=== PATIENT | male | born 1940 | race Caucasian/White ===

== ENCOUNTER → 2018-05-10 | Outpatient (CLI) | payer MEDICARE ==
--- NOTE | 2018-05-10 09:48 | RADIOLOGY REPORT (SQ) ---
EXAM DESCRIPTION: U/S ABD AORTIC SCREENING COMPLETED DATE/TIME: 05/10/2018 9:37 am REASON FOR STUDY: SCREENING FOR AAA (Z13.6), TOBACCO USE (Z72.0) Z13.6 ENCOUNTER FOR SCREENING FOR CARDIOVASCULAR DISORDERS Z72.0 TOBACCO USE COMPARISON: CT chest 06/24/2016 TECHNIQUE: Static and dynamic grayscale images acquired of the aorta and stored on PACs. Selected co esau Doppler and spectral images recorded. LIMITATIONS: None. FINDINGS: AORTIC CALIBER MAXIMAL PROXIMAL: 3.0 cm. MID: 2.6 cm. DISTAL: 6.5 cm in diameter. ILIAC DIAMETER RIGHT: 1.4 cm. LEFT: 2.1 cm. OTHER: No other significant finding. IMPRESSION: Unruptured 6.5 cm diameter infrarenal abdominal aortic aneurysm just above the iliac bif urcation. COMMENT: Aorta screening examinations categories: Negative - less than 3 cm. TECHNICAL DOCUMENTATION: JOB ID: [id number] [employer]- All Rights Reserved Reading location - IP/workstation name: [email or web address]
== END ==
LOC: RAD 08:46
PROVIDERS: ATTEND Family Medicine
DX: Z13.6 Encounter for screening for cardiovascular disorders (principal); I71.4 Abdominal aortic aneurysm, without rupture; Z87.891 Personal history of nicotine dependence
CPT/HCPCS: 76706

== ENCOUNTER 2018-10-06 08:02 | Day surgery (SDC) | payer MEDICARE ==
[~2018-10-06 08:02] MED LIST: CHONDR SU A NA/HYALUR INTRAOC KIT (SURGICARE) ONE; EPINEPHRINE INJ/PF 1 MG/1 ML AMPULE ONE; KETOROLAC TROMETHAMINE 0.45% 4 DROP/0.4 ML DROPERETTE OS PRN; LIDOCAINE 1% INJ-PF (10 MG/ML) 30 ML SDV ONE; MIDAZOLAM 2 MG/2 ML INJ ONE
[2018-10-06] MEDS: TROPICAMIDE 1% OPH SOLN 3 ML OS PRN ×3 (08:35→08:55)
[2018-10-06] MEDS: CYCLOPENTOLATE 0.2%/PHENYLEPHRINE 1% OPH SOLN 2 ML OS PRN ×3 (08:35→08:55)
[2018-10-06] MEDS: BESIFLOXACIN HCL 0.6% OPH SUSP 5 ML BOTTLE OS PRN ×5 (08:36→09:35)
[2018-10-06] MEDS: TETRACAINE HCL 0.5% OPH SOLN 4 ML OS PRN ×3 (08:36→09:10)
--- NOTE | 2018-10-06 19:02 | [facility] OPERATIVE REPORT E ---
[facility] Operative Report NAME: PRAMOD DAVALOS AGE: 78Y DATE OF SURGERY: 10/06/2018 ROOM: PREOPERATIVE DIAGNOSIS: CATARACT, LEFT EYE. POSTOPERATIVE DIAGNOSIS: CATARACT, LEFT EYE. OPERATION: Cataract extraction with insertion of an IOL of the left eye. SURGEON: ANTONIO BATEMAN M.D. ANESTHESIA: Topical. PROCEDURE: After obtaining appropriate consent, the patient's left eye was prepped and draped in sterile fashion as well as the surgeon in a sterile manner and cataract surgery was started. First a paracentesis blade was used to make a side-port incision. Viscoelastic was used to inflate the anterior chamber. Next a 2.4 mm incision was made with a 2.4 mm blade, clear corneal temporally. A continuous capsulorrhexis was made using a cystotome and Utrata forceps. Following this hydrodissection was carried out to make the lens fully loose and mobile and it was rotated 90 degrees. Following this, a ihsbva-thb-mdsekzn technique was used to phacoemulsify the lens with a CDE of 7.30. The remaining cortex was removed with irrigation/aspiration. Provisc was instilled into the capsular bag to inflate the bag. A SN60WF, 21.0 diopter lens was placed. The remaining viscoelastic material was removed with irrigation/aspiration. Following this, the incision was found to be watertight. Besivance was instilled into the eye and a protective shield was placed over the eye. The patient returned to the postoperative recovery in stable condition. DICTATING PHYSICIAN: ANTONIO BATEMAN M.D. [id number] PHY#: [id number] ID: [id number] JOB#: [id number] ACCT: [id number] cc:ANTONIO BATEMAN M.D. >
--- NOTE | 2018-10-06 19:03 | [facility] DISCHARGE SUMMARY E ---
[facility] Discharge Summary NAME: PRAMOD DAVALOS AGE: 78Y ADMITTED: 10/06/2018 DISCHARGED: 10/06/2018 HOSPITAL COURSE: This is a 78-year-old male who underwent cataract extraction of the left eye. DIAGNOSIS: CATARACT, LEFT EYE. He underwent surgery because he was having difficulty seeing small print. DISCHARGE INSTRUCTIONS: He should be on a regular diet. No bending at his waist, no heavy lifting. He should use his Vigamox, ketorolac, and Predforte at 3 p.m. and 8 p.m. and sleep with a rigid shield. I will see him for his 1 day postoperative tomorrow. DICTATING PHYSICIAN: ANTONIO BATEMAN M.D. [id number] PHY#: [id number] ID: [id number] JOB#: [id number] ACCT: [id number] cc:ANTONIO BATEMAN M.D. >
== END 2018-10-06 10:18 | disposition home or self-care (01) ==
LOC: SC 08:02
PROVIDERS: ATTEND Internal Medicine
DX: H25.813 Combined forms of age-related cataract, bilateral (principal); H57.03 Miosis; H40.1132 Primary open-angle glaucoma, bilateral, moderate stage; E11.9 Type 2 diabetes mellitus without complications; I10 Essential (primary) hypertension; R01.1 Cardiac murmur, unspecified; E78.00 Pure hypercholesterolemia, unspecified; Z79.899 Other long term (current) drug therapy; Z79.84 Long term (current) use of oral hypoglycemic drugs
CPT/HCPCS: 82962; 66984; V2632; J2250; J3490 ×3; A9270; J0171; 142

== ENCOUNTER 2018-10-24 08:28 | Day surgery (SDC) | payer MEDICARE ==
[~2018-10-24 08:28] MED LIST changes: -CHONDR SU A NA/HYALUR INTRAOC KIT (SURGICARE) ONE; -EPINEPHRINE INJ/PF 1 MG/1 ML AMPULE ONE; +KETOROLAC TROMETHAMINE 0.45% 4 DROP/0.4 ML DROPERETTE OD PRN; -KETOROLAC TROMETHAMINE 0.45% 4 DROP/0.4 ML DROPERETTE OS PRN; -LIDOCAINE 1% INJ-PF (10 MG/ML) 30 ML SDV ONE; -MIDAZOLAM 2 MG/2 ML INJ ONE
[2018-10-24] MEDS ORDERED: LIDOCAINE 1% INJ-PF (10 MG/ML) 30 ML SDV ONE (08:51)
[2018-10-24] MEDS ORDERED: EPINEPHRINE INJ/PF 1 MG/1 ML AMPULE ONE (08:51)
[2018-10-24] MEDS ORDERED: CHONDR SU A NA/HYALUR INTRAOC KIT (SURGICARE) ONE (08:51)
[2018-10-24] MEDS: TROPICAMIDE 1% OPH SOLN 3 ML OD PRN ×3 (09:02→09:26)
[2018-10-24] MEDS: TETRACAINE HCL 0.5% OPH SOLN 4 ML OD PRN ×3 (09:02→09:34)
[2018-10-24] MEDS: CYCLOPENTOLATE 0.2%/PHENYLEPHRINE 1% OPH SOLN 2 ML OD PRN ×3 (09:02→09:25)
[2018-10-24] MEDS: BESIFLOXACIN HCL 0.6% OPH SUSP 5 ML BOTTLE OD PRN ×3 (09:02→09:56)
[2018-10-24] MEDS ORDERED: MIDAZOLAM 2 MG/2 ML INJ ONE (09:20)
[2018-10-24] MEDS ORDERED: FENTANYL CITRATE INJ/PF 100 MCG/2 ML AMPUL ONE (09:20)
--- NOTE | 2018-10-24 14:32 | [facility] DISCHARGE SUMMARY E ---
[facility] Discharge Summary NAME: PRAMOD DAVALOS AGE: 78Y ADMITTED: 10/24/2018 DISCHARGED: 10/24/2018 DIAGNOSIS: CATARACT, RIGHT EYE. SUMMARY: This is a 78-year-old patient who underwent cataract extraction, right eye. They underwent having surgery because they were having trouble seeing road signs at a distance. DISCHARGE INSTRUCTIONS: The patient should be on a regular diet, no bending at the waist, and no heavy lifting. They should use their Besivance, Ilevro, and Durezol at 3 p.m. and 8 p.m. and sleep with a rigid shield. I will see him for his 1-day postoperative tomorrow. DICTATING PHYSICIAN: ANTONIO BATEMAN M.D. [id number] PHY#: [id number] ID: [id number] JOB#: [id number] ACCT: [id number] cc:ANTONIO BATEMAN M.D. >
--- NOTE | 2018-10-24 14:32 | [facility] OPERATIVE REPORT E ---
[facility] Operative Report NAME: PRAMOD DAVALOS AGE: 78Y DATE OF SURGERY: 10/24/2018 ROOM: PREOPERATIVE DIAGNOSIS: CATARACT, RIGHT EYE. POSTOPERATIVE DIAGNOSIS: CATARACT, RIGHT EYE. OPERATION: Cataract extraction with insertion of an IOL of the right eye. SURGEON: ANTONIO BATEMAN M.D. ANESTHESIA: Topical. PROCEDURE: After obtaining appropriate consent, the patient's right eye was prepped and draped in sterile fashion as well as the surgeon in a sterile manner and cataract surgery was started. First a paracentesis blade was used to make a side-port incision. Viscoelastic was used to inflate the anterior chamber. Next a 2.4 mm incision was made with a 2.4 mm blade, clear corneal temporally. A continuous capsulorrhexis was made using a cystotome and Utrata forceps. Following this hydrodissection was carried out to make the lens fully loose and mobile and it was rotated 90 degrees. Following this, a ijjwdp-qmd-deaotqf technique was used to phacoemulsify the lens with a CDE of 9.5. The remaining cortex was removed with irrigation/aspiration. Provisc was instilled into the capsular bag to inflate the bag. A SN60WF, 21.0 diopter lens was placed. The remaining viscoelastic material was removed with irrigation/aspiration. Following this, the incision was found to be watertight. Besivance was instilled into the eye and a protective shield was placed over the eye. The patient returned to the postoperative recovery in stable condition. DICTATING PHYSICIAN: ANTONIO BATEMAN M.D. [id number] PHY#: [id number] ID: [id number] JOB#: [id number] ACCT: [id number] cc:ANTONIO BATEMAN M.D. >
== END 2018-10-24 11:31 | disposition home or self-care (01) ==
LOC: SC 08:28
PROVIDERS: ATTEND Internal Medicine
DX: H25.811 Combined forms of age-related cataract, right eye (principal)
CPT/HCPCS: 82962; 66984; V2632; J2250; J3490 ×3; A9270; J0171; J3010; 142

== ENCOUNTER 2019-08-28 08:16 | Day surgery (SDC) | payer MEDICARE, MEDICAID ==
[~2019-08-28 08:16] MED LIST changes: -KETOROLAC TROMETHAMINE 0.45% 4 DROP/0.4 ML DROPERETTE OD PRN; +PROPOFOL INJ 200 MG/20 ML VIAL IV ONE
[2019-08-28 10:07] VITALS: BP 155/84
--- NOTE | 2019-08-28 13:37 | Operative Report ---
Operative Report DATE OF SURGERY: 08/28/19 Operative Report: The risks, benefits and alternatives of the procedure including the risk of bleeding, perforation requiring surgery have been explained to the patient in detail and informed consent has been obtained. The patient is placed in a left, lateral decubital position. Timeout was called. Propofol medication is administered. Rectal examination is done which did not reveal any masses, tears or fissures. An Olympus videoscope was introduced into the patient's rectum. Scope was then carefully advanced all the way to the cecum. Cecum was identified by the usual anatomical landmarks of the ileocecal valve as well as the appendiceal office. Photodocumentation is obtained. Scope was then sequentially pulled back via the various segments of the colon including the ascending colon, hepatic flexure, transverse colon, splenic flexure, descending colon finding to the rectosigmoid portions of the colon. Retroflexion maneuvers performed. PREOPERATIVE DIAGNOSIS: Personal history of polyp POSTOPERATIVE DIAGNOSIS: Small sessile descending colon polyp that was removed via snare polypectomy and retrieved. Large hepatic flexure polyp that had to be removed piecemeal but all segments retrieved. Transverse colon polyp that was removed via snare polypectomy and retrieved. Internal hemorrhoids OPERATION: Colonoscopy with snare polypectomy SURGEON: RADHA SHIN ANESTHESIA: LMAC TISSUE REMOVED OR ALTERED: As noted above. COMPLICATIONS: None. ESTIMATED BLOOD LOSS: None. INTRAOPERATIVE FINDINGS: As noted above. PROCEDURE: Patient tolerated the procedure well. No immediate postprocedure complications are noted. Patient is discharged in good condition. Discharge date 08/28/2019. Discharge diet: Regular. Discharge activity: Regular. 2 to 3-week follow-up to discuss findings. Patient is instructed to call the office or proceed to the emergency room should there be any further problems or questions. Wait on the pathology. 3-year surveillance colonoscopy.
== END 2019-08-28 10:20 | disposition home or self-care (01) ==
LOC: END 08:16
PROVIDERS: ATTEND Internal Medicine Gastroenterology
DX: Z12.11 Encounter for screening for malignant neoplasm of colon (principal); D12.2 Benign neoplasm of ascending colon; D12.3 Benign neoplasm of transverse colon; Z86.010 Personal history of colon polyps; I10 Essential (primary) hypertension; E11.9 Type 2 diabetes mellitus without complications; E78.5 Hyperlipidemia, unspecified; Z87.891 Personal history of nicotine dependence; Z79.4 Long term (current) use of insulin; Z96.41 Presence of insulin pump (external) (internal); Z79.84 Long term (current) use of oral hypoglycemic drugs; Z79.899 Other long term (current) drug therapy
CPT/HCPCS: 45385; 82962; 88305 ×2; 00811; J2704; 811